=== PATIENT | male | born 1985 | race Caucasian/White ===

== ENCOUNTER 2019-04-19 12:34 | Observation (INO) | payer BC, OTHER ==
[~2019-04-19] VITALS: Ht 177.8 cm; Wt 226.7 kg
--- NOTE | 2019-04-19 12:41 | ED General ---
General Stated Complaint: CHEST PAIN History of Present Illness Date Seen by Provider: Apr 19, 2019 Time Seen by Provider: 12:37 Initial Comments Patient presents emergency department for evaluation of chest pressure and dyspnea with worsening dyspnea on exertion that started this morning. 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 He says that he was sat down and rested and the dyspnea improves as well as pressure but he still has pressure that he feels in the center of his chest that radiates to both sides of his chest. He says that he left work and he went home and took his blood pressure medications and he feels somewhat better but if he gets up and walks around he feels dyspnea and worsening chest pressure. Patient has not been compliant with his Coreg or lisinopril over the past month and a half is he says it was making him feel lightheaded and weak and his blood pressure was going too low so he stopped both of them. He says besides hypertension he has not been diagnosed with high cholesterol or diabetes. He denies smoking cigarettes but says he is around people who smoke cigarettes. His grandmother from a heart attack in her 80s. He says he has not been diagnosed with heart disease. Allergies and Home Medications Allergies Coded Allergies: Penicillins (Unverified Allergy, Severe, 04/19/19) Rash amoxicillin (Unverified Allergy, Severe, 04/19/19) Rash Patient Home Medication List Home Medication List Reviewed: Yes Review of Systems Review of Systems Constitutional: no symptoms reported EENTM: no symptoms reported Respiratory: dyspnea on exertion, short of breath Cardiovascular: chest pain Gastrointestinal: abdominal pain Genitourinary: no symptoms reported Musculoskeletal: no symptoms reported Skin: no symptoms reported Psychiatric/Neurological: No Symptoms Reported All Other Systems Reviewed Negative Unless Noted: Yes Physical Exam Vital Signs Vital Signs - First Documented 04/19/19 12:38 Temp 97.5 Pulse 92 Resp 15 B/P (MAP) 152/86 (108) Pulse Ox 95 O2 Delivery Room Air Capillary Refill : Height, Weight, BMI Height: '" Weight: lbs. oz. kg; BMI Method: General Appearance: No Apparent Distress, Obese HEENT: PERRL/EOMI Neck: Non Tender Respiratory: No Accessory Muscle Use, Wheezing Cardiovascular: Regular Rate, Rhythm Gastrointestinal: Non Tender, Soft Back: Normal Inspection Extremity: Pedal Edema, Swelling Neurologic/Psychiatric: Alert, Oriented x3 Skin: Normal Color, Warm/Dry Progress/Results/Core Measures Suspected Sepsis SIRS Temperature: Pulse: Respiratory Rate: Laboratory Tests 04/19/19 12:44: White Blood Count 8.7 Blood Pressure / Mean: Laboratory Tests 04/19/19 12:44: Creatinine 0.75, INR Comment 1.0, Platelet Count 236, Total Bilirubin 0.4 Results/Orders Lab Results Laboratory Tests Test 04/19/19 12:44 Range/Units White Blood Count 8.7 4.3-11.0 10^3/uL Red Blood Count 4.71 4.35-5.85 10^6/uL Hemoglobin 13.7 13.3-17.7 G/DL Hematocrit 44 40-54 % Mean Corpuscular Volume 93 80-99 FL Mean Corpuscular Hemoglobin 29 25-34 PG Mean Corpuscular Hemoglobin Concent 31 L 32-36 G/DL Red Cell Distribution Width 14.2 10.0-14.5 % Platelet Count 236 130-400 10^3/uL Mean Platelet Volume 10.3 7.4-10.4 FL Neutrophils (%) (Auto) 64 42-75 % Lymphocytes (%) (Auto) 19 12-44 % Monocytes (%) (Auto) 12 0-12 % Eosinophils (%) (Auto) 4 0-10 % Basophils (%) (Auto) 1 0-10 % Neutrophils # (Auto) 5.6 1.8-7.8 X 10^3 Lymphocytes # (Auto) 1.6 1.0-4.0 X 10^3 Monocytes # (Auto) 1.0 0.0-1.0 X 10^3 Eosinophils # (Auto) 0.4 H 0.0-0.3 10^3/uL Basophils # (Auto) 0.1 0.0-0.1 10^3/uL Prothrombin Time 13.8 12.2-14.7 SEC INR Comment 1.0 0.8-1.4 Activated Partial Thromboplast Time 25 24-35 SEC Sodium Level 139 135-145 MMOL/L Potassium Level 4.0 3.6-5.0 MMOL/L Chloride Level 97 L 98-107 MMOL/L Carbon Dioxide Level 30 21-32 MMOL/L Anion Gap 12 5-14 MMOL/L Blood Urea Nitrogen 13 7-18 MG/DL Creatinine 0.75 0.60-1.30 MG/DL Estimat Glomerular Filtration Rate > 60 BUN/Creatinine Ratio 17 Glucose Level 94 70-105 MG/DL Calcium Level 8.8 8.5-10.1 MG/DL Corrected Calcium 8.7 8.5-10.1 MG/DL Magnesium Level 2.0 1.8-2.4 MG/DL Total Bilirubin 0.4 0.1-1.0 MG/DL Aspartate Amino Transf (AST/SGOT) 21 5-34 U/L Alanine Aminotransferase (ALT/SGPT) 25 0-55 U/L Alkaline Phosphatase 116 40-136 U/L Troponin I < 0.30 <0.30 NG/ML Pro-B-Type Natriuretic Peptide 239.7 H <75.0 PG/ML Total Protein 7.6 6.4-8.2 GM/DL Albumin 4.1 3.2-4.5 GM/DL Lipase 56 8-78 U/L My Orders Orders - RENETTA CHARLES DO Cbc With Automated Diff (04/19/19 12:45) Comprehensive Metabolic Panel (04/19/19 12:45) Lipase (04/19/19 12:45) Magnesium (04/19/19 12:45) Partial Thromboplastin Time (04/19/19 12:45) Probnp Fs (04/19/19 12:45) Protime With Inr (04/19/19 12:45) Troponin I (04/19/19 12:45) Ua Culture If Indicated (04/19/19 12:45) Ekg Tracing (04/19/19 12:45) Drug Screen Stat (Urine) (04/19/19 12:45) Aspirin Chewable Tablet (Baby Aspirin Ch (04/19/19 12:45) Antacid Suspension (Mylanta Suspension (04/19/19 13:15) Lidocaine 2% Viscous 15 Ml (Xylocaine Vi (04/19/19 13:15) Albuterol/Ipra Inhalation Soln (Duoneb I (04/19/19 13:15) Svn Small Volume Nebulizer (04/19/19 13:10) Chest 1 View Ap/Pa Only (04/19/19 13:24) Medications Given in ED Current Medications Medications Dose Ordered Sig/Jason Route Start Time Stop Time Status Last Admin Dose Admin Al Hydrox/Mg Hydrox/Simethicone 30 ml ONCE ONCE PO 04/19/19 13:15 04/19/19 13:16 DC 04/19/19 13:18 30 ML Albuterol/ Ipratropium 3 ml ONCE ONCE INH 04/19/19 13:15 04/19/19 13:16 DC 04/19/19 13:18 3 ML Aspirin 324 mg ONCE ONCE PO 04/19/19 12:45 04/19/19 12:48 DC 04/19/19 12:53 324 MG Lidocaine HCl 5 ml ONCE ONCE PO 04/19/19 13:15 04/19/19 13:16 DC 04/19/19 13:18 5 ML Vital Signs/I&O 04/19/19 04/19/19 04/19/19 12:38 12:53 12:54 Temp 97.5 97.5 Pulse 92 Resp 15 B/P (MAP) 152/86 (108) Pulse Ox 95 O2 Delivery Room Air Room Air Capillary Refill : Progress Note : Progress Note Patient is morbidly obese and has some concerning symptoms for possible angina as his symptoms get worse when he is up moving around. His EKG shows no obvious ischemic changes. I did want to get a CT angiogram and I'm and pelvis as he was complaining of some abdominal bloating as well however the weight limit on the CT scanner is 400 pounds and he weighs approximately 500 pounds. Patient's troponin is negative however his BNP is elevated concerning for possible CHF. I told patient I am quite concerned about his exertional chest pressure and dyspnea and recommended that he gets inpatient cardiac evaluation. Patient is willing to do this. He is not willing to be transferred via ambulance. I told patient that he could have sudden cardiac especially if he is up moving around. I told him it is quite necessary to be transferred via ambulance but he is not willing to have this done. I explained why I wanted to be done and that the risks he is taking by not taking EMS transfer including and disability. Patient verbalized understanding and accepted the risks of and disability by not going via EMS. Departure Impression Primary Impression: Chest pain Qualified Codes: R07.9 - Chest pain, unspecified Additional Impression: Elevated brain natriuretic peptide (BNP) level Disposition: ADMITTED INPATIENT Condition: Stable Transfer Method of Transfer: Private Vehicle Departure-Patient Inst. Referrals: ROHAN GARNETT DO (PCP/Family) Primary Care Physician RENETTA CHARLES DO Apr 19, 2019 12:41
[2019-04-19] MEDS ORDERED: ASPIRIN 81 MG CHEW (CHILDREN'S ASA) PO ONE (12:45)
[2019-04-19 12:59] LABS: WHITE BLOOD COUNT 8.7 10^3/uL (4.3-11.0)
[2019-04-19 13:00] LABS: BASOPHILS # (AUTO) 0.1 10^3/uL (0.0-0.1); BASOPHILS % (AUTO) 1 % (0-10); EOSINOPHILS # (AUTO) 0.4 10^3/uL (0.0-0.3); EOSINOPHILS % (AUTO) 4 % (0-10); HEMATOCRIT 44 % (40-54); HEMOGLOBIN 13.7 G/DL (13.3-17.7); LYMPHOCYTES # (AUTO) 1.6 X 10^3 (1.0-4.0); LYMPHOCYTES % (AUTO) 19 % (12-44); MEAN CORPUSCULAR HEMOGLOBIN 29 PG (25-34); MEAN CORPUSCULAR HGB CONC 31 G/DL (32-36); MEAN CORPUSCULAR VOLUME 93 FL (80-99); MEAN PLATELET VOLUME 10.3 FL (7.4-10.4); MONOCYTES % (AUTO) 12 % (0-12); NEUTROPHILS # (AUTO) 5.6 X 10^3 (1.8-7.8); NEUTROPHILS % (AUTO) 64 % (42-75); PLATELET COUNT 236 10^3/uL (130-400); RED CELL DISTRIBUTION WIDTH 14.2 % (10.0-14.5)
[2019-04-19 13:07] LABS: PROTHROMBIN TIME PATIENT 13.8 SEC (12.2-14.7)
[2019-04-19] MEDS ORDERED: RT-ALBUTEROL/IPRATROPIUM 3 ML (DUONEB) VIAL INH ONE (13:15)
[2019-04-19] MEDS ORDERED: LIDOCAINE 2% VISCOUS 15 ML UDC PO ONE (13:15)
[2019-04-19] MEDS ORDERED: ANTACID SUSP 30 ML UDC (MYLANTA) PO ONE (13:15)
[2019-04-19 13:21] LABS: ALANINE AMINOTRANSFERASE 25 U/L (0-55); ALBUMIN 4.1 GM/DL (3.2-4.5); ALKALINE PHOSPHATASE 116 U/L (40-136); BILIRUBIN,TOTAL 0.4 MG/DL (0.1-1.0); BUN/CREATININE RATIO 17; CALCIUM 8.8 MG/DL (8.5-10.1); CARBON DIOXIDE 30 MMOL/L (21-32); CHLORIDE 97 MMOL/L (98-107); CREATININE SERUM 0.75 MG/DL (0.60-1.30); GFR ESTIMATED > 60; GLUCOSE 94 MG/DL (70-105); SODIUM 139 MMOL/L (135-145); TOTAL PROTEIN 7.6 GM/DL (6.4-8.2)
[2019-04-19 13:22] LABS: LIPASE 56 U/L (8-78)
--- NOTE | 2019-04-19 13:39 | Diagnostic Imaging Report ---
Indication: Chest pain and shortness of breath. Time of exam 1:10 PM No prior studies are available for comparison. Heart size is normal. Lungs appear to be hyperinflated. No infiltrates are seen. There is no effusion or pneumothorax. Impression: Hyperinflation. No acute infiltrate is detected. Dictated by: Dictated on workstation # [id number]
--- NOTE | 2019-04-19 14:00 | NUR ---
Pt IV in place for transfer by POV. Doctor notified.
[2019-04-19 14:15] LABS: BILIRUBIN,URINE NEGATIVE (NEGATIVE); CLARITY,URINE CLEAR; COLOR,URINE YELLOW; GLUCOSE, URINE (UA) NEGATIVE (NEGATIVE); KETONES,URINE NEGATIVE (NEGATIVE); LEUKOCYTE ESTERASE ,URINE NEGATIVE (NEGATIVE); NITRITE,URINE NEGATIVE (NEGATIVE); PROTEIN,URINE NEGATIVE (NEGATIVE); UROBILINOGEN,URINE 0.2 MG/DL (NORMAL)
[2019-04-19 14:22] LABS: AMPHETAMINE SCREEN, URINE NEGATIVE (NEGATIVE); BARBITURATE SCREEN URINE NEGATIVE (NEGATIVE); BENZODIAZEPINES SCREEN URINE NEGATIVE (NEGATIVE); CANNABINOID SCREEN, URINE POSITIVE (NEGATIVE); COCAINE SCREEN URINE NEGATIVE (NEGATIVE); METHADONE STAT NEGATIVE (NEGATIVE); METHAMPHETAMINE SCREEN URINE S NEGATIVE (NEGATIVE); OPIATE SCREEN URINE NEGATIVE (NEGATIVE); OXYCODONE STAT NEGATIVE (NEGATIVE); PROPOXYPHENE STAT NEGATIVE (NEGATIVE); TRICYCLIC ANTIDEPRESSANTS SCRE NEGATIVE (NEGATIVE)
[2019-04-19 15:11] VITALS: BP 168/93
[2019-04-19] MEDS ORDERED: PATIENT MAY USE OWN MEDS, ALL PO SCH (15:15)
[2019-04-19] MEDS ORDERED: ONDANSETRON 4 MG/2 ML (SDV) Z0FRAN IVP PRN (15:15)
[2019-04-19] MEDS ORDERED: morphine INJ 10 MG/ML 1ML (SYR OR VIAL) IVP PRN (15:15)
[2019-04-19] MEDS ORDERED: CATHETER FLUSH 10 ML SYR IV PRN (15:45)
[2019-04-19] MEDS ORDERED: morphine INJ 4 MG/ML 1 ML (VIAL/SYRINGE) IV PRN (15:45)
[2019-04-19] MEDS ORDERED: REGADENOSON 0.4 MG/5 ML SYR (LEXISCAN) IV ONE (15:45)
--- NOTE | 2019-04-19 15:49 | History & Physical-Hospitalist ---
History of Present Illness HPI/Chief Complaint Pt is a 34yoCF with a PMH of HTN who presented to the ER with a CC of chest pain. He states he was at work hooking up a trailer and while this normally does not affect him but he developed chest pain in the center of his chest and became dyspneic and diaphoretic. He has never had similar symptoms. He did feel like he had some abdominal distention with it but no nausea. He is a former smoker but quit roughly 10 years ago. He does still smoke marijuana occasionally. Source: patient Exam Limitations: no limitations Date Seen 04/19/19 Time Seen by a Provider: 15:51 Attending Physician Selam Alejandre MD PCP Taz Strickland DO Referring Physician Date of Admission Apr 19, 2019 at 2:58 pm Home Medications & Allergies Home Medications Reviewed patient Home Medication Reconciliation performed by pharmacy medication reconciliations ophthalmology technician and/or nursing. Patients Allergies have been reviewed. Allergies Allergies Coded Allergies Penicillins (Unverified Allergy, Severe, 04/19/19) Rash amoxicillin (Unverified Allergy, Severe, 04/19/19) Rash Past [id number] Hx Past Med/Social Hx: Reviewed Nursing Past Med/Soc Hx Patient Social History Marrital Status: Employed/Student: employed Alcohol Use: Occasionally Uses Alcohol Beverage of Choice: Beer Recreational Drug Use: Yes Drug of Choice: THC Vape Smoking Status: Former Smoker Type Used: Cigarettes 2nd Hand Smoke Exposure: Yes Recent Foreign Travel: No Contact w/other who traveled: No Recent Hopitalizations: No Recent Infectious Disease Expo: No Seasonal Allergies Seasonal Allergies: Yes Past Medical History Surgeries: Orthopedic Cardiac: Hypertension Sexually Transmitted Disease: No HIV/AIDS: No Musculoskeletal: Arthritis HEENT: Eye Injury Loss of Vision: Left Hearing Impairment: Hard of Hearing History of Blood Disorders: No Family History Reviewed Nursing Family Hx Heart Disease, Diabetes Review of Systems Constitutional: No chills; diaphoresis; No fever EENTM: no symptoms reported Respiratory: dyspnea on exertion, short of breath Cardiovascular: chest pain, edema (chronic); No Hx of Intervention, No palpitations, No syncope Gastrointestinal: abdominal pain; No constipation, No diarrhea, No nausea, No vomiting Genitourinary: no symptoms reported Musculoskeletal: back pain (chronic) Skin: no symptoms reported Psychiatric/Neurological: No Symptoms Reported Physical Exam Physical Exam Vital Signs Vital Signs - First Documented 04/19/19 12:38 Temp 97.5 Pulse 92 Resp 15 B/P (MAP) 152/86 (108) Pulse Ox 95 O2 Delivery Room Air Capillary Refill : Less Than 3 Seconds Height, Weight, BMI Height: 5'10.00" Weight: 390lbs. 5.0oz. [id number]; 56.0 BMI Method:Stated General Appearance: No Apparent Distress, Obese HEENT: Normal ENT Inspection, Moist Mucous Membranes; No Scleral Icterus (L), No Scleral Icterus (R) Neck: Normal Inspection Respiratory: Lungs Clear, No Accessory Muscle Use, No Respiratory Distress Cardiovascular: Regular Rate, Rhythm, No Murmur, Normal Peripheral Pulses Gastrointestinal: Normal Bowel Sounds, Non Tender, Soft; No Distended, No Guarding, No Rebound Extremity: Non Tender, No Calf Tenderness, Swelling Neurologic/Psychiatric: Alert, Oriented x3, Normal Mood/Affect; No Aphasia, No Facial Droop Skin: Normal Color, Warm/Dry, Tattoos/Piercings Results Results/Procedures Labs Laboratory Tests 04/19/19 12:44 Patient resulted labs reviewed. Imaging: Reviewed Imaging Report Assessment/Plan Admission Diagnosis Typical chest pain Admission Status: Observation Diagnosis/Problems Diagnosis/Problems (1) Chest pain in adult Assessment & Plan: trend troponins telemetry echo ordered Cardiology consulted, appreciate recs Plan for stress in AM if troponins remain negative (2) Essential (primary) hypertension Assessment & Plan: was previously on lisinopril but took himself off due to fatigue and hypotension Monitor BP but will likely need antihypertensives at discharge given current trend SELAM ALEJANDRE MD Apr 19, 2019 3:48 pm
--- NOTE | 2019-04-19 15:52 | NUR ---
RACHELNILS Daniel admitted to room 407-1, with an admitting diagnosis of chest pain, on 04/19/19 from ED Rafael Martin , accompanied by .NILS RAMOS introduced to surroundings, call light, bed controls, phone, TV, temperature control, lights, meal times, smoking policy, visitor policy, side rail policy, bathrooms and showers. Patient Rights given to patient in the handbook. NILS RAMOS verbalizes understanding that [facility] is not responsible for the loss or damage to any personal effects or valuables that are kept in the patients posession during their hospitalization. The following Patient Care Plans and discharge were discussed with the patient and present. NILS RAMOS verbalizes understanding of Interdisciplinary Patient Education.
[2019-04-19] MEDS ORDERED: LISI1TAB6 PO (16:33)
[2019-04-19] MEDS ORDERED: ACET-2267 PO (16:33)
[2019-04-19] MEDS ORDERED: MELO15TA39 PO (16:33)
[2019-04-19] MEDS ORDERED: MAGN400T39 PO (16:38)
[2019-04-19] MEDS ORDERED: VITA400C60 PO (16:38)
[2019-04-19] MEDS ORDERED: POTA99TA21 PO (16:38)
[2019-04-19] MEDS ORDERED: BIOT1TAB PO (16:38)
[2019-04-19] MEDS ORDERED: [UNRECOGNIZED DRUG - OTHER] PO (16:38)
[2019-04-19] MEDS ORDERED: VITA1CAP PO (16:40)
--- NOTE | 2019-04-19 16:42 | NUR ---
SPOKE WITH THE PATIENT ABOUT HIS MEDICATIONS. HIS LISTED WHAT HE IS CURRENTLY TAKING AND I VERIFIED THE PRESCRIPTIONS WITH THE EXT MED HX. HE FILLED LISINOPRIL HCTZ 10-12.5 #90 FOR A 90 DAY SUPPLY 02-16-19 AND CARVEDILOL 12.5MG #90 FOR 90 DAYS 02-10-19. HE STATES HE HAS NOT BEEN TAKING THESE RECENTLY. HE SAW DR. GARNETT AND WAS TOLD TO TRY TAKING THEM EVERY OTHER DAY, ALSO AT THAT VISIT HE WAS GIVEN AN ANTIBIOTIC FOR AN INFECTION AND WAS TOLD TO COME BACK WHEN THAT WAS FINISHED. HE FILLED CLINDAMYCIN 01-26-19 BUT STATES HE HAS NOT BEEN BACK TO THE OFFICE AND JUST STOPPED TAKING THE CARVEDILOL AND LISINOPRIL. HE MONITORS HIS BLOOD PRESSURE AT HOME AND HAD NOT BEEN HAVING ISSUES. TODAY HE DID TAKE ONE OF HIS LISINOPRIL TABLETS AFTER SYMPTOMS STARTED. I LEFT LISINOPRIL HCTZ ON THE MED REC PRN BUT DID NOT INCLUDE THE CARVEDILOL AT THIS TIME. HE TAKES THE FOLLOWING OTC: TYLENOL PRN VITAMIN E DAILY POTASSIUM DAILY B COMPLEX DAILY BIOTIN DAILY MAGNESIUM DAILY MENS WORKFORCE SUPPLEMENT FROM [employer] DAILY
--- NOTE | 2019-04-19 17:48 | Consultation-Cardiology ---
HPI-Cardiology Cardiology Consultation: Date of Consultation 04/19/19 Date of Admission Attending Physician Selam Alejandre MD Admitting Physician Taz Strickland DO Consulting Physician Gilson WARE MD HPI: Time Seen by a Provider: 17:46 Chief Complaint: Chest pain This is a 34-year-old gentleman with morbid obesity who presents with chest pain and shortness of breath. He also has diaphoresis as well as pressure on the chest like somebody is sitting on his chest. He has history of hypertension but is noncompliant. He denies smoking. He denies any family history of premature CAD. Review of Systems-Cardiology Review of Systems Constitutional: As described under HPI; No As described under HPI, No no symptoms reported, No chills, No fever, No lightheadedness Eyes: No As described under HPI, No no symptoms reported, No blindness, No blurred vision, No contact lenses, No drainage, No decreased acuity, No foreign body sensation, No pain, No vision change Ears/Nose/Throat: No As described under HPI, No no symptoms reported, No chronic hearing loss, No ear discharge, No ear pain, No nasal drainage, No ulcerations Respiratory: No no symptoms reported; As described under HPI; No As described under HPI, No cough, No orthopnea; shortness of breath; No SOB with excertion Cardiovascular: No no symptoms reported; As described under HPI; No As described under HPI; chest pain; No edema, No irregular heart rate, No lightheadedness, No palpitations Gastrointestinal: No no symptoms reported, No As described under HPI, No abdomen distended, No abdominal pain, No blood streaked bowels, No constipation, No diarrhea, No nausea, No vomiting, No stool coloration changes Genitourinary: No As described under HPI, No burning, No dysuria, No discharge, No frequency, No flank pain, No hematuria, No urgency Skin: No rash, No skin related problems, No ulcerations Psychiatric/Neurological: No anxiety, No depression, No seizure, No focal weakness, No syncope Hematologic: No bleeding abnormalities All Other Systems Reviewed Negative Unless Noted: Yes [id number] Hx Patient Social History Marrital Status: Employed/Student: employed Alcohol Use: Occasionally Uses Recreational Drug Use: Yes Drug of Choice: THC Vape Smoking Status: Former Smoker Type Used: Cigarettes 2nd Hand Smoke Exposure: Yes Recent Foreign Travel: No Recent Infectious Disease Expo: No Physical Abuse Screen: No Sexual Abuse: No Past Medical History PMH As described under Assessment. Family Medical History Family History: Alzheimer's disease Arthritis Asthma Cardiovascular disease Diabetes mellitus Hypertension Myocardial infarction Parkinson's disease Respiratory disorder Allergies and Home Medications Allergies Coded Allergies: Penicillins (Unverified Allergy, Severe, 04/19/19) Rash amoxicillin (Unverified Allergy, Severe, 04/19/19) Rash Home Medications Acetaminophen 500 Mg Tablet, 1,000 MG PO Q4H PRN for PAIN-MILD, (Reported) Biotin 1 Mg Tablet, 1 MG PO DAILY, (Reported) Lisinopril/Hydrochlorothiazide 1 Each Tablet, 1 TAB PO DAILY PRN for BLOOD PRESSURE, (Reported) Magnesium Oxide 400 Mg Tablet, 400 MG PO DAILY, (Reported) Meloxicam 15 Mg Tablet, 15 MG PO DAILY, (Reported) Potassium Gluconate 99 Mg Tablet, 99 MG PO DAILY, (Reported) Vitamin B Complex 1 Each Capsule, 1 CAP PO DAILY, (Reported) Vitamin E Acetate 400 Unit Capsule, 400 UNIT PO DAILY, (Reported) [[employer]] , 1 CAP PO DAILY, (Reported) Patient Home Medication List Home Medication List Reviewed: Yes Physical Exam-Cardiology Physical Exam Vital Signs/I&O 04/19/19 04/19/19 04/19/19 04/19/19 12:38 12:53 12:54 14:17 Temp 97.5 97.5 Pulse 92 92 Resp 15 14 B/P (MAP) 152/86 (108) 148/83 (104) Pulse Ox 95 95 O2 Delivery Room Air Room Air Room Air 04/19/19 04/19/19 04/19/19 04/19/19 15:11 15:11 16:00 16:41 Temp 99.2 99.2 Pulse 99 99 Resp 20 20 B/P (MAP) 168/93 (118) 168/93 Pulse Ox 91 91 91 O2 Delivery Room Air Room Air Room Air Room Air Capillary Refill : Less Than 3 Seconds Constitutional: AAO x 3, well-developed HEENT: No PERRL, No normal ENT inspection, No TMs normal, No pharynx normal, No scleral icterus (R), No scleral icterus (L), No pale conjunctivae (R), No pale conjunctivae (L), No photophobia, No TM abnormal (R), No TM abnormal (L), No pharyngeal erythema, No tonsillar exudate, No other, No discharge, No EOMI, No hearing is well preserved, No hard of hearing, No oral hygience is good, No ulceration, No xanthelasmas are seen Neck: No non-tender, No full range of motion, No supple, No normal inspection, No carotid bruit, No limited range of motion, No lymphadenopathy (R), No lymphadenopathy (L), No tender lateral, No tender midline, No thyromegaly, No other, No carotid pulses are 2 + bilaterally, No with good upstrokes Respiratory: No accessory muscle use, No respiratory distress, No chest tender, No chest expansion is symmetric; chest is bilaterally symmetric; No lungs clear to percussion; lungs clear to auscultation; No crackles, No rhonchi, No rales, No stridor, No wheezing, No pleural rub, No other Cardiovascular: regular rate-rhythm; No irregularly irregular, No extra beats, No parasternal heave is noted, No JVD, No edema, No bradycardia, No tachycardia, No point of maximal impulse, No cardiac thrills are palpable; S1 and S2; No gallop/S3, No gallop/S4, No diastolic murmur, No systolic murmur, No friction rub, No click, No other Gastrointestinal: No tender, No soft, No round, No distended, No pulsatile mass, No organomegaly, No guarding, No rebound, No tenderness, No hernia, No mass, No audible bowel sounds, No abnormal bowel sounds, No abdominal bruits, No spleenomegaly, No other Rectal: deferred Extremities: No normal range of motion, No non-tender, No normal inspection, No pedal edema, No calf tenderness, No normal capillary refill, No pelvis stable, No calf tenderness, No inflammation, No pedal edema, No slow capillary refill, No swelling, No other, No abrasion, No clubbing, No cyanosis, No ecchymosis, No laceration, No no lower extremity edema bilateral, No significant edema, No tenderness, No wound Neurologic/Psychiatric: no motor/sensory deficits, alert, normal mood/affect, oriented x 3, power is 5/5 both on sides Skin: No normal color, No warm/dry, No cyanosis, No cool, No diaphoresis, No damp, No ecchymosis, No jaundice, No mottled, No pallor, No rash, No tattoos/piercings, No ulcerations, No rash on exposed areas, No ulcerations on exposed areas, No other Data Review Labs Laboratory Tests 04/19/19 12:44: White Blood Count 8.7, Red Blood Count 4.71, Hemoglobin 13.7, Hematocrit 44, Mean Corpuscular Volume 93, Mean Corpuscular Hemoglobin 29, Mean Corpuscular Hemoglobin Concent 31L, Red Cell Distribution Width 14.2, Platelet Count 236, Mean Platelet Volume 10.3, Neutrophils (%) (Auto) 64, Lymphocytes (%) (Auto) 19, Monocytes (%) (Auto) 12, Eosinophils (%) (Auto) 4, Basophils (%) (Auto) 1, Neutrophils # (Auto) 5.6, Lymphocytes # (Auto) 1.6, Monocytes # (Auto) 1.0, Eosinophils # (Auto) 0.4H, Basophils # (Auto) 0.1, Prothrombin Time 13.8, INR Comment 1.0, Activated Partial Thromboplast Time 25, Sodium Level 139, Potassium Level 4.0, Chloride Level 97L, Carbon Dioxide Level 30, Anion Gap 12, Blood Urea Nitrogen 13, Creatinine 0.75, Estimat Glomerular Filtration Rate > 60, BUN/Creatinine Ratio 17, Glucose Level 94, Calcium Level 8.8, Corrected Calcium 8.7, Magnesium Level 2.0, Total Bilirubin 0.4, Aspartate Amino Transf (AST/SGOT) 21, Alanine Aminotransferase (ALT/SGPT) 25, Alkaline Phosphatase 116, Troponin I < 0.30, Pro-B-Type Natriuretic Peptide 239.7H, Total Protein 7.6, Albumin 4.1, Lipase 56 04/19/19 14:02: Urine Color YELLOW, Urine Clarity CLEAR, Urine pH 8.0, Urine Specific [place] 1.015L, Urine Protein NEGATIVE, Urine Glucose (UA) NEGATIVE, Urine Ketones NEGATIVE, Urine Nitrite NEGATIVE, Urine Bilirubin NEGATIVE, Urine Urobilinogen 0.2, Urine Leukocyte Esterase NEGATIVE, Urine RBC (Auto) NEGATIVE, Urine RBC NONE, Urine WBC NONE, Urine Squamous Epithelial Cells 5-10, Urine Crystals NONE, Urine Bacteria NONE, Urine Casts NONE, Urine Mucus NEGATIVE, Urine Culture Indicated NO, Urine Opiates Screen NEGATIVE, Urine Oxycodone Screen NEGATIVE, Urine Methadone Screen NEGATIVE, Urine Propoxyphene Screen NEGATIVE, Urine Barbiturates Screen NEGATIVE, Ur Tricyclic Antidepressants Screen NEGATIVE, Urine Phencyclidine Screen NEGATIVE, Urine Amphetamines Screen NEGATIVE, Urine Methamphetamines Screen NEGATIVE, Urine Benzodiazepines Screen NEGATIVE, Urine Cocaine Screen NEGATIVE, Urine Cannabinoids Screen POSITIVEH 04/19/19 15:41: Troponin I < 0.028 ECG Impression ECG Initial ECG Rhythm: Normal Sinus A/P-Cardiology Assessment/Admission Diagnosis Chest pain, shortness of breath, morbid obesity, Hypertension Plan Chest pain, echocardiogram, serial troponin. If serial troponin negative will schedule stress test in the morning. shortness of breath, no evidence of congestive heart failure. Echocardiogram. morbid obesity, Hypertension; continue lisinopril. Thank you for your consultation. Please call me if you have any questions. Zoe Ware MD, FACP, FACC, FSCAI, FHRS, CCDS Interventional Cardiology Cardiac Electrophysiology Vascular Medicine and Endovascular Interventions Clinical Quality Measures DVT/VTE Risk/Contraindication: Risk Factor Score Per Nursin RFS Level Per Nursing on Admit: 1=Low/No VTE PPX Gilson WARE MD Apr 19, 2019 5:48 pm
[2019-04-19 20:08] VITALS: BP 136/68
[2019-04-19] MEDS: CATHETER FLUSH 10 ML SYR IV SCH (22:00)
[2019-04-20] VITALS (8 sets, daily range): BP systolic 116–141; BP diastolic 61–88
[2019-04-20 05:17] LABS: BASOPHILS % (AUTO) 1 % (0-10); EOSINOPHILS # (AUTO) 0.4 10^3/uL (0.0-0.3); EOSINOPHILS % (AUTO) 6 % (0-10); HEMATOCRIT 43 % (40-54); HEMOGLOBIN 13.6 G/DL (13.3-17.7); LYMPHOCYTES # (AUTO) 1.6 X 10^3 (1.0-4.0); LYMPHOCYTES % (AUTO) 23 % (12-44); MEAN CORPUSCULAR HEMOGLOBIN 29 PG (25-34); MEAN CORPUSCULAR HGB CONC 32 G/DL (32-36); MEAN CORPUSCULAR VOLUME 92 FL (80-99); MEAN PLATELET VOLUME 10.5 FL (7.4-10.4); MONOCYTES # (AUTO) 0.9 X 10^3 (0.0-1.0); MONOCYTES % (AUTO) 13 % (0-12); NEUTROPHILS # (AUTO) 4.1 X 10^3 (1.8-7.8); NEUTROPHILS % (AUTO) 58 % (42-75); PLATELET COUNT 234 10^3/uL (130-400); RED CELL DISTRIBUTION WIDTH 14.8 % (10.0-14.5)
[2019-04-20 05:41] LABS: ALANINE AMINOTRANSFERASE 25 U/L (0-55); ALBUMIN 3.9 GM/DL (3.2-4.5); ALKALINE PHOSPHATASE 109 U/L (40-136); BILIRUBIN,TOTAL 0.6 MG/DL (0.1-1.0); BUN/CREATININE RATIO 14; CALCIUM 9.3 MG/DL (8.5-10.1); CARBON DIOXIDE 28 MMOL/L (21-32); CHLORIDE 102 MMOL/L (98-107); CHOLESTEROL 152 MG/DL (< 200); CREATININE SERUM 0.81 MG/DL (0.60-1.30); GFR ESTIMATED > 60; GLUCOSE 95 MG/DL (70-105); HDL CHOLESTEROL 52 MG/DL (40-60); SODIUM 139 MMOL/L (135-145); TOTAL PROTEIN 6.9 GM/DL (6.4-8.2); TRIGLYCERIDES 47 MG/DL (<150); VLDL CHOLESTEROL 9 MG/DL (5-40)
[2019-04-20] MEDS: CATHETER FLUSH 10 ML SYR IV SCH ×2 (06:00→14:11)
--- NOTE | 2019-04-20 06:18 | Pulmonary Consultation ---
History of Present Illness History of Present Illness Date of Consultation 04/20/19 06:12 Time Seen by Provider: 06:13 Date of Admission History of Present Illness 34yo with morbid obesity presented to to ED secondary to worsening CP, and dyspnea while hooking up a trailer. during episode pt also became diaphoretic. No prior episodes like this. He quit smoking tobacco 10yrs ago however currently smokes Marijuana. I am consulted for pulmonary management. Allergies and Home Medications Allergies Coded Allergies: Penicillins (Unverified Allergy, Severe, 04/19/19) Rash amoxicillin (Unverified Allergy, Severe, 04/19/19) Rash Home Medications Acetaminophen 500 Mg Tablet, 1,000 MG PO Q4H PRN for PAIN-MILD, (Reported) Biotin 1 Mg Tablet, 1 MG PO DAILY, (Reported) Lisinopril/Hydrochlorothiazide 1 Each Tablet, 1 TAB PO DAILY PRN for BLOOD PRESSURE, (Reported) Magnesium Oxide 400 Mg Tablet, 400 MG PO DAILY, (Reported) Meloxicam 15 Mg Tablet, 15 MG PO DAILY, (Reported) Potassium Gluconate 99 Mg Tablet, 99 MG PO DAILY, (Reported) Vitamin B Complex 1 Each Capsule, 1 CAP PO DAILY, (Reported) Vitamin E Acetate 400 Unit Capsule, 400 UNIT PO DAILY, (Reported) [Workforce For Men] , 1 CAP PO DAILY, (Reported) Past Alzgfnt-Wxtvvq-Eulphe Hx Past Med/Social Hx: Reviewed Nursing Past Med/Soc Hx Patient Social History Alcohol Use: Occasionally Uses Number of Drinks Today: AA Alcohol Beverage of Choice: Beer Recreational Drug Use: Yes Drug of Choice: THC Vape Smoking Status: Former Smoker Type Used: Cigarettes 2nd Hand Smoke Exposure: Yes Recent Foreign Travel: No Contact w/Someone Who Travel: No Recent Infectious Disease Expo: No Recent Hopitalizations: No Physical Abuse: No Sexual Abuse: No Mistreated: No Fear: No Seasonal Allergies Seasonal Allergies: Yes Past Medical History Surgeries: Yes (Titanium plate in Right shoulder and left leg) Orthopedic Respiratory: Yes Asthma Cardiac: Yes Hypertension Neurological: No Sexually Transmitted Disease: No HIV/AIDS: No Genitourinary: No Gastrointestinal: No Musculoskeletal: Yes Arthritis Endocrine: No HEENT: Yes ("star across left eye" due to paint ball accident.) Eye Injury Loss of Vision: Left Hearing Impairment: Hard of Hearing Cancer: No Blood Disorders: No Family Medical History Reviewed Nursing Family Hx Alzheimer's disease Arthritis Asthma Cardiovascular disease Diabetes mellitus Hypertension Myocardial infarction Parkinson's disease Respiratory disorder Heart Disease, Diabetes Review of Systems Time Seen by Provider: 07:43 Constitutional: Sweats, Weakness, Malaise; No: Fever, Chills, Other Eyes: No: Pain, Vision change, Conjunctivae inflammation, Eyelid inflammation, Other, Redness ENT: Nose congestion; No: Ear pain, Ear discharge, Nose pain, Nose discharge, Mouth pain, Mouth swelling, Throat pain, Throat swelling, Other Respiratory: Shortness of breath, SOB with excertion, Wheezing; No: Hemoptysis Cardiovascular: Chest Pain, Palpitations, Paroxysmal Noc. Dyspnea, Lt Headedness; No: Orthopnea, Edema, Other Gastrointestinal: No: Nausea, Vomiting, Abdominal Pain, Diarrhea, Constipation, Melena, Hematochezia, Other Genitourinary: No Dysuria, No Frequency, No Incontinence, No Hematuria, No Retention, No Other Neurological: Weakness Sepsis Event Evaluation Height, Weight, BMI Height: 5'10.00" Weight: 499lbs. 13.4oz. 226.178330vl; 56.0 BMI Method:Stated Exam Exam Vital Signs Date Time Temp Pulse Resp B/P (MAP) Pulse Ox O2 Delivery O2 Flow Rate FiO2 04/20/19 04:26 97.1 93 20 131/61 (84) 96 Room Air 04/20/19 04:00 Room Air 04/20/19 01:00 91 04/20/19 00:01 96.9 85 22 131/61 (84) 91 Room Air 04/20/19 00:00 Room Air 04/19/19 20:08 98.6 110 20 136/68 (90) 94 Room Air 04/19/19 20:00 Room Air 04/19/19 20:00 Room Air 04/19/19 19:00 91 04/19/19 17:45 87 04/19/19 16:41 Room Air 04/19/19 16:00 91 Room Air 04/19/19 15:11 99.2 99 20 168/93 91 Room Air 04/19/19 15:11 99.2 99 20 168/93 (118) 91 Room Air 04/19/19 14:17 92 14 148/83 (104) 95 Room Air 04/19/19 12:54 Room Air 04/19/19 12:53 97.5 04/19/19 12:38 97.5 92 15 152/86 (108) 95 Room Air I & O 04/20/19 07:00 Intake Total 1800 ml Balance 1800 ml Height & Weight Height: 5'10.00" Weight: 499lbs. 13.4oz. 226.363046ws; 56.0 BMI Method:Stated General Appearance: No Apparent Distress, Obese HEENT: Normal ENT Inspection, Moist Mucous Membranes; No Scleral Icterus (L), No Scleral Icterus (R) Neck: Normal Inspection Respiratory: Lungs Clear, No Accessory Muscle Use, No Respiratory Distress Cardiovascular: Regular Rate, Rhythm, No Murmur, Normal Peripheral Pulses Capillary Refill: Less Than 3 Seconds Gastrointestinal: normal bowel sounds, non tender, soft Extremity: Non Tender, No Calf Tenderness, Swelling Neurologic/Psychiatric: Alert, Oriented x3, Normal Mood/Affect; No Aphasia, No Facial Droop Skin: Normal Color, Warm/Dry, Tattoos/Piercings Results Lab Laboratory Tests 04/19/19 12:44 04/20/19 04:45 Assessment/Plan Assessment/Plan Morbid obesity with OHS -Check ABG -Diet and exercise -Education Worsening SOB -Monitor -Currently on RA -Will do out pt PFT CP - Cardiology following -Possible stress test today Tobacco and marijuana use -Education HTN HUNTER PINZON DO Apr 20, 2019 06:17
--- NOTE | 2019-04-20 07:31 | NUR ---
Patient to cardiac stress test with staff per wheelchair.
[2019-04-20] MEDS ORDERED: REGADENOSON 0.4 MG/5 ML SYR (LEXISCAN) IV ONE (08:20)
[2019-04-20] MEDS ORDERED: ASPIRIN E.C. 81 MG (ECOTRIN) TAB PO SCH (09:00)
--- NOTE | 2019-04-20 11:05 | Discharge Summary ---
Diagnosis/Chief Complaint Date of Admission Apr 19, 2019 at 14:58 Date of Discharge Admission Diagnosis Typical chest pain Discharge Diagnosis (1) Chest pain in adult Assessment & Plan: trend troponins telemetry echo ordered Cardiology consulted, appreciate recs Plan for stress in AM if troponins remain negative (2) Essential (primary) hypertension Assessment & Plan: was previously on lisinopril but took himself off due to fatigue and hypotension Monitor BP but will likely need antihypertensives at discharge given current trend Discharge Summary Procedures/Consulations Dr Ware- Cardiology Dr Khanna- Pulm Discharge Physical Exam Allergies: Coded Allergies: Penicillins (Unverified Allergy, Intermediate, rash, 04/20/19) amoxicillin (Unverified Allergy, Intermediate, Rash, 04/20/19) Vitals & I&Os Vital Signs Date Time Temp Pulse Resp B/P (MAP) Pulse Ox O2 Delivery O2 Flow Rate FiO2 04/20/19 16:43 04/20/19 16:00 97.2 04/20/19 16:00 90 17 Room Air 04/20/19 13:30 97 General Appearance: No Apparent Distress, Obese Respiratory: Lungs Clear, No Respiratory Distress Cardiovascular: Regular Rate, Rhythm, No Murmur Neurologic/Psychiatric: Alert, Oriented x3 Hospital Course Patient is a 34-year-old male past medical history of hypertension who is admitted to the hospital for ACS rule out. He had symptoms concerning for angina and underwent serial troponins which were negative so he had a nuclear stress test nuclear stress test which was read as high risk. He underwent cardiac catheterization. Cardiac catheterization was clean. His symptoms are likely related to his obesity. Due to this Dr. Khanna of pulmonology was consulted to assist with either outpatient sleep study or arranging home vent to mask. Labs (last 24 hrs) Laboratory Tests 04/20/19 14:14: Blood Gas Puncture Site LT RAD, Blood Gas Patient Temperature 96.7, Arterial Blood pH 7.41, Arterial Blood Partial Pressure CO2 43, Arterial Blood Partial Pressure O2 62L, Arterial Blood HCO3 28H, Arterial Blood Total CO2 29.1, Arterial Blood Oxygen Saturation 93L, Arterial Blood Base Excess 3.2H, Theron Test YES-POS, Blood Gas Ventilator Setting NO, Blood Gas Inspired Oxygen ROOM AIR Patient resulted labs reviewed. Pending Labs Imaging: Reviewed Imaging Report Discussion & Recommendations Discharge Planning: >30 minutes discharge planning Discharge Home Medications: Active Scripts Active Reported Vitamin B Complex 1 Each Capsule 1 Cap PO DAILY [Workforce For Men] 1 Cap PO DAILY Magnesium (Magnesium Oxide) 400 Mg Tablet 400 Mg PO DAILY Biotin 1 Mg Tablet 1 Mg PO DAILY Potassium (Potassium Gluconate) 99 Mg Tablet 99 Mg PO DAILY Vitamin E (Vitamin E Acetate) 400 Unit Capsule 400 Unit PO DAILY Tylenol Extra Strength (Acetaminophen) 500 Mg Tablet 1,000 Mg PO Q4H PRN Meloxicam 15 Mg Tablet 15 Mg PO DAILY Instructions to patient/family Please see electronic discharge instructions given to patient. Clinical Quality Measures DVT/VTE Risk/Contraindication: Risk Factor Score Per Nursin RFS Level Per Nursing on Admit: 1=Low/No VTE PPX Copy Copies To 1: ROHAN GARNETT KATELYN M MD Apr 20, 2019 11:05
--- NOTE | 2019-04-20 11:10 | Discharge Inst-Simple/Standard ---
Discharge Inst-Standard Discharge Medications New, Converted or Re-Newed RX: Transmitted to Pharmacy Patient Instructions/Follow Up Plan of Care/Instructions/FU: Please continue to take your medications as written. Please follow up with your PCP in one week. Activity as Tolerated: Yes Discharge Diet: Cardiac Diet Return to The Hospital For: Chest pain, shortness of breath, palpitations, if you feel you are getting worse. JANA GRIMES MD Apr 20, 2019 11:10
[2019-04-20] MEDS ORDERED: VERAPAMIL 5 MG/2 ML (CALAN) VIAL IV ONE (12:28)
[2019-04-20] MEDS ORDERED: NITRO DRIP 25000 MCG/D5W 250 ML IV ONE (12:28)
[2019-04-20] MEDS ORDERED: HEParin 1000 UNIT/ML (10ML VIAL) FOR BOLUS ONE (12:28)
[2019-04-20] MEDS ORDERED: LIDOCAINE 1% INJ 20 ML 20 ML VIAL ONE (12:28)
[2019-04-20] MEDS ORDERED: HEParin (CATH LAB) 2,000 ML IV ONE (12:28)
[2019-04-20] MEDS ORDERED: MIDAZOLAM 5 MG/5 ML (VERSED) VIAL ONE (12:29)
[2019-04-20] MEDS ORDERED: fentaNYL INJECTION 100 MCG/2 ML AMP ONE (12:29)
[2019-04-20] MEDS ORDERED: NS IV 1000 ML 1,000 ML ONE (12:44)
--- NOTE | 2019-04-20 12:45 | NUR ---
Patient to geoscience laboratory technician with staff per hosptial bed accompanied by .
[2019-04-20] MEDS ORDERED: NS IV 1000 ML 1,000 ML IV SCH ×2 (13:19→13:30)
--- NOTE | 2019-04-20 13:19 | Cardiac Procedure Note-CS/ASA ---
Pre-Procedure Note Pre-Op Procedure Note H&P Reviewed The H&P was reviewed, patient examined and no changes noted. Date H&P Reviewed: Apr 20, 2019 Time H&P Reviewed: 12:00 Conscious Sedation Pre-Proced Time 12:00 ASA Score 3 For ASA 3 and 4: Consider anesthesia and medical clearance. Also, for patients with a history of failed moderate sedation consider anesthesia. Airway Lungs Heart ASA score ASA 1: a normal healthy patient ASA 2: a patient with a mild systemic disease (mid diabetes, controlled hypertension, obesity ASA 3: a patient with a severe systemic disease that limits activity (angina, COPD, prior Myocardial infarction) ASA 4: a patient with an incapacitating disease that is a constant threat to life (CHF, renal failure) ASA 5: a moribund patient not expected to survive 24 hrs. (ruptured aneurysm) ASA 6: a declared brain- patient whose organs are being harvested. For emergent operations, add the letter E after the classification Mallampati Classification Grade 1 Sedation Plan Analgesia, Amnesia, Plan communicated to team members, Discussed options with patient/fam, Discussed risks with patient/fam The patient is an appropriate candidate to undergo the planned procedure, sedation, and anesthesia. The patient immediately re-assessed prior to indication. Gilson MORGAN MD Apr 20, 2019 13:19
--- NOTE | 2019-04-20 13:19 | Coronary Angiography Report ---
Coronary Angiography Report DATE OF PROCEDURE: 04/20/19 INDICATION: unstable angina. PREOPERATIVE DIAGNOSIS: unstable angina. POSTOPERATIVE DIAGNOSIS: patent epicardial coronary arteries. HISTORY: this is a 34-year-old gentleman with morbid obesity who presented with a prolonged episode of chest pain. Working diagnosis was unstable angina.There fore, the patient was scheduled for coronary angiography. PROCEDURES PERFORMED: 1.Coronary angiography. 2.Left heart catheterization. 3. Aortic arch angiogram, medical necessity: To rule out aortic dissection or thoracic aortic aneurysm in a patient with prolonged episode of chest pain and patent coronaries. COMPLICATIONS: None. SPECIMENS: None. ESTIMATED BLOOD LOSS: 10 mL ANESTHESIA: Conscious sedation ANTICOAGULATION: IV heparin CONTRAST: 88 mL. FLUOROSCOPY: 3.3 minutes. FLOUROSCOPY DOSE: 763 mgy. PROCEDURE DETAILS: The patient is a 34 male and was brought to the entry level lab technician after informed consent was taken. All the risks and complications were explained in detail; this included the risk of bleeding, vascular damage, stroke, UT and even . The patient was draped and prepped in the usual sterile fashion. Access was gained in the right radial artery with a 6 Cypriot sheath. Coronary angiography and left heart catheterization was performed with the [place] catheter. FINDINGS: 1.Left main: patent. 2.LAD: patent. 3.Left circumflex artery: patent. 4.RCA: patent. 5.Left heart catheterization: LV pressure 113/12 mmHg, aortic pressure 124/92 mmHg LVEDP 30 mmHg, normal LVEF with no wall motion abnormalities. No gradient across the aortic valve. 6. Aortic arch angiogram: No evidence of dissection or aneurysm. Patent proximal segments of the great arteries. CONCLUSIONS: patent epicardial coronary arteries. Elevated LVEDP suggest diastolic dysfunction. Continue primary prevention measures. Zoe Ware MD, FACP, FACC, [facility] Interventional Cardiology Gilson WARE MD Apr 20, 2019 13:19
[2019-04-20] MEDS ORDERED: PATIENT MAY USE OWN MEDS, ALL PO SCH (13:30)
[2019-04-20 14:20] LABS: ABG BASE EXCESS 3.2 MMOL/L (-2.5-2.5); ABG OXYGEN SATURATION 93 % (94-100); ABG PCO2 43 MMHG (35-45); ABG PH 7.41 (7.37-7.43); ABG PO2 62 MMHG (79-93); ABG TCO2 29.1 MMOL/L (21.0-31.0)
[2019-04-20 14:23] LABS: ALLENS TEST YES-POS; INSPIRED O2 ROOM AIR; PATIENT TEMP 96.7; VENTILATOR NO
--- NOTE | 2019-04-20 16:39 | Cardiology Progress Note ---
Cardiology SOAP Progress Note Subjective: No further chest pain. Objective: I&O/Vital Signs 04/20/19 04/20/19 04/20/19 04/20/19 07:00 07:18 08:19 08:34 Temp 97.9 Pulse 87 87 86 104 Resp 22 B/P (MAP) 141/74 (96) 124/88 (100) 133/73 (93) Pulse Ox 93 94 97 O2 Delivery Room Air 04/20/19 04/20/19 04/20/19 04/20/19 09:45 12:02 13:30 13:31 Temp 98.5 Pulse 86 88 87 Resp 20 17 B/P (MAP) 140/83 (102) 135/85 (102) Pulse Ox 97 97 O2 Delivery Room Air Room Air Room Air 04/20/19 04/20/19 16:00 16:00 Temp 97.2 Pulse 90 Resp 17 B/P (MAP) 116/68 (84) O2 Delivery Room Air 04/20/19 00:00 Intake Total 1800 ml Balance 1800 ml Weight (Pounds): 499 Weight (Ounces): 13.4 Weight (Calculated Kilograms): 226.125011 Constitutional: AAO x 3, well-developed Respiratory: No accessory muscle use, No respiratory distress, No chest tender, No chest expansion is symmetric; chest is bilaterally symmetric; No lungs clear to percussion; lungs clear to auscultation; No crackles, No rhonchi, No rales, No stridor, No wheezing, No pleural rub, No other Cardiovascular: regular rate-rhythm; No irregularly irregular, No extra beats, No parasternal heave is noted, No JVD, No edema, No bradycardia, No tachycardia, No point of maximal impulse, No cardiac thrills are palpable; S1 and S2; No gallop/S3, No gallop/S4, No diastolic murmur, No systolic murmur, No friction rub, No click, No other Gastrointestional: No tender, No soft, No round, No distended, No pulsatile mass, No organomegaly, No guarding, No rebound, No tenderness, No hernia, No mass, No audible bowel sounds, No abnormal bowel sounds, No abdominal bruits, No spleenomegaly, No other Extremities: No normal range of motion, No non-tender, No normal inspection, No pedal edema, No calf tenderness, No normal capillary refill, No pelvis stable, No calf tenderness, No inflammation, No pedal edema, No slow capillary refill, No swelling, No other, No abrasion, No clubbing, No cyanosis, No ecchymosis, No laceration, No no lower extremity edema bilateral, No significant edema, No tenderness, No wound Neurologic/Psychiatric: no motor/sensory deficits, alert, normal mood/affect, oriented x 3, power is 5/5 both on sides Skin: No normal color, No warm/dry, No cyanosis, No cool, No diaphoresis, No damp, No ecchymosis, No jaundice, No mottled, No pallor, No rash, No tattoos/piercings, No ulcerations, No rash on exposed areas, No ulcerations on exposed areas, No other Results/Procedures: Labs Laboratory Tests 04/19/19 21:10: Troponin I < 0.028 04/20/19 04:45: White Blood Count 7.0, Red Blood Count 4.69, Hemoglobin 13.6, Hematocrit 43, Mean Corpuscular Volume 92, Mean Corpuscular Hemoglobin 29, Mean Corpuscular Hemoglobin Concent 32, Red Cell Distribution Width 14.8H, Platelet Count 234, Mean Platelet Volume 10.5H, Neutrophils (%) (Auto) 58, Lymphocytes (%) (Auto) 23, Monocytes (%) (Auto) 13H, Eosinophils (%) (Auto) 6, Basophils (%) (Auto) 1, Neutrophils # (Auto) 4.1, Lymphocytes # (Auto) 1.6, Monocytes # (Auto) 0.9, Eosinophils # (Auto) 0.4H, Basophils # (Auto) 0.0, Sodium Level 139, Potassium Level 4.0, Chloride Level 102, Carbon Dioxide Level 28, Anion Gap 9, Blood Urea Nitrogen 11, Creatinine 0.81, Estimat Glomerular Filtration Rate > 60, BUN/Creatinine Ratio 14, Glucose Level 95, Calcium Level 9.3, Corrected Calcium 9.4, Total Bilirubin 0.6, Aspartate Amino Transf (AST/SGOT) 26, Alanine Aminotransferase (ALT/SGPT) 25, Alkaline Phosphatase 109, Total Protein 6.9, Albumin 3.9, Triglycerides Level 47, Cholesterol Level 152, LDL Cholesterol Direct 97, VLDL Cholesterol 9, HDL Cholesterol 52 04/20/19 14:14: Blood Gas Puncture Site LT RAD, Blood Gas Patient Temperature 96.7, Arterial Blood pH 7.41, Arterial Blood Partial Pressure CO2 43, Arterial Blood Partial Pressure O2 62L, Arterial Blood HCO3 28H, Arterial Blood Total CO2 29.1, Arterial Blood Oxygen Saturation 93L, Arterial Blood Base Excess 3.2H, Theron Test YES-POS, Blood Gas Ventilator Setting NO, Blood Gas Inspired Oxygen ROOM AIR A/P: Assessment/Dx: Chest pain, shortness of breath, morbid obesity, Hypertension Plan: Chest pain, echocardiogram, serial troponin. Serial troponin negative. Nuclear stress test will be done. If nuclear stress test is abnormal, we will perform coronary angiography. shortness of breath, no evidence of congestive heart failure. Echocardiogram. morbid obesity, Hypertension; continue lisinopril. Thank you for your consultation. Please call me if you have any questions. Zoe Ware MD, FACP, FACC, FSCAI, FHRS, CCDS Interventional Cardiology Cardiac Electrophysiology Vascular Medicine and Endovascular Interventions Gilson WARE MD Apr 20, 2019 16:39
== END 2019-04-20 16:43 | disposition home or self-care (01) ==
LOC: ER FS 12:35 → 4TH 14:58 → ICU 04-20 13:28
PROVIDERS: ADMIT Family Medicine; ATTEND Family Medicine
DX: R07.9 Chest pain, unspecified (principal); E66.2 Morbid (severe) obesity with alveolar hypoventilation; R00.2 Palpitations; I10 Essential (primary) hypertension; J45.909 Unspecified asthma, uncomplicated; R79.89 Other specified abnormal findings of blood chemistry; R61 Generalized hyperhidrosis; M19.90 Unspecified osteoarthritis, unspecified site; Z88.0 Allergy status to penicillin; Z88.1 Allergy status to other antibiotic agents; Z79.899 Other long term (current) drug therapy; Z79.82 Long term (current) use of aspirin; Z87.891 Personal history of nicotine dependence; Z83.3 Family history of diabetes mellitus; Z82.49 Family history of ischemic heart disease and other diseases of the circulatory system; Z82.0 Family history of epilepsy and other diseases of the nervous system; Z82.5 Family history of asthma and other chronic lower respiratory diseases; Z68.45 Body mass index [BMI] 70 or greater, adult; Z91.14 Patient's other noncompliance with medication regimen
CPT/HCPCS: 36221; 36415; 71045; 78452; 80053; 80061; 80306; 81000; 82805; 83690; 83735; 83880; 84484; 85025; 85610; 85730; 93005; 93017; 93306; 93458; G0378

== ENCOUNTER → 2019-12-22 | Outpatient (CLI) | payer OTHER ==
[~2019-12-22] MED LIST: ACET-2267 PO; BIOT1TAB PO; LISI1TAB29 PO; MAGN400T39 PO; MELO15TA39 PO; POTA99TA21 PO; VITA1CAP PO; VITA400C60 PO; [UNRECOGNIZED DRUG - OTHER] PO
--- NOTE | 2019-12-22 14:58 | Diagnostic Imaging Report ---
EXAM: SHOULDER 2 VIEW RIGHT. INDICATION: Right shoulder pain. COMPARISON: None. FINDINGS: There is an intramedullary tere and fixation screws in the proximal right humerus. The hardware components appear intact. No fracture is identified. Normal alignment. IMPRESSION: Intramedullary tere and fixation screws in the right proximal humerus. No acute findings. Dictated by: Dictated on workstation # [id number]
== END ==
LOC: LAB 14:30
DX: M25.511 Pain in right shoulder (principal)
CPT/HCPCS: 73030

== ENCOUNTER 2020-11-02 12:09 | Emergency (ER) | payer SELFPAY ==
[~2020-11-02] VITALS: Ht 177 cm; Wt 249.0 kg
--- NOTE | 2020-11-02 12:23 | ED General ---
General Stated Complaint: ELEV BP History of Present Illness Date Seen by Provider: Nov 02, 2020 Time Seen by Provider: 12:18 Initial Comments 35 yo male sent in by urgent care because of elevated BP. pt had no physical complaints. pt was nervous/anxious because he has been out of work for almost 1 yr. pt is morbid obese with wt over 500lbs. pt does not have insurance and would like a minimal workup as needed. pt reports his hr is normally slighty elevated and probable more so because he is aggitated. Allergies and Home Medications Allergies Coded Allergies: Penicillins (Unverified Allergy, Intermediate, rash, 04/20/19) amoxicillin (Unverified Allergy, Intermediate, Rash, 04/20/19) Home Medications Acetaminophen 500 Mg Tablet, 1,000 MG PO Q4H PRN for PAIN-MILD, (Reported) Biotin 1 Mg Tablet, 1 MG PO DAILY, (Reported) Magnesium Oxide 400 Mg Tablet, 400 MG PO DAILY, (Reported) Meloxicam 15 Mg Tablet, 15 MG PO DAILY, (Reported) Potassium Gluconate 99 Mg Tablet, 99 MG PO DAILY, (Reported) Vitamin B Complex 1 Each Capsule, 1 CAP PO DAILY, (Reported) Vitamin E Acetate 400 Unit Capsule, 400 UNIT PO DAILY, (Reported) [Workforce For Men] , 1 CAP PO DAILY, (Reported) Patient Home Medication List Home Medication List Reviewed: Yes Review of Systems Review of Systems Constitutional: No chills, No fever EENTM: no symptoms reported Respiratory: no symptoms reported Cardiovascular: no symptoms reported Gastrointestinal: no symptoms reported Genitourinary: no symptoms reported Musculoskeletal: no symptoms reported Skin: no symptoms reported Psychiatric/Neurological: No Symptoms Reported Hematologic/Lymphatic: No Symptoms Reported Past Nyfotat-Iprpyn-Ekuwwl Hx Patient Social History Alcohol Beverage of Choice: Beer Drug of Choice: THC Vape Type Used: Cigarettes 2nd Hand Smoke Exposure: Yes Recent Hopitalizations: No Seasonal Allergies Seasonal Allergies: Yes Past Medical History Surgeries: Yes (Titanium plate in Right shoulder and left leg) Orthopedic Respiratory: Yes Asthma Cardiac: Yes Hypertension Neurological: No Sexually Transmitted Disease: No HIV/AIDS: No Genitourinary: No Gastrointestinal: No Musculoskeletal: Yes Arthritis Endocrine: No HEENT: Yes ("star across left eye" due to paint ball accident.) Eye Injury Loss of Vision: Left Hearing Impairment: Hard of Hearing Cancer: No Blood Disorders: No Family Medical History Alzheimer's disease Arthritis Asthma Cardiovascular disease Diabetes mellitus Hypertension Myocardial infarction Parkinson's disease Respiratory disorder Heart Disease, Diabetes Physical Exam Vital Signs Vital Signs - First Documented 11/02/20 12:28 Temp 36.7 Pulse 114 Resp 18 B/P (MAP) 169/107 (127) Pulse Ox 94 O2 Delivery Room Air Capillary Refill : Height, Weight, BMI Height: 5'10.00" Weight: 499lbs. 13.4oz. 226.966430pw; 56.0 BMI Method:Stated General Appearance: No Apparent Distress, WD/WN, Obese HEENT: PERRL/EOMI Cardiovascular: Tachycardia Gastrointestinal: Non Tender, Soft Extremity: Normal Capillary Refill, Normal Range of Motion Neurologic/Psychiatric: Alert, Oriented x3, No Motor/Sensory Deficits, Normal Mood/Affect, classroom technology technician II-XII Norm as Tested Skin: Normal Color, Warm/Dry Progress/Results/Core Measures Suspected Sepsis SIRS Temperature: Pulse: Respiratory Rate: Blood Pressure / Mean: Results/Orders Vital Signs/I&O 11/02/20 12:28 Temp 36.7 Pulse 114 Resp 18 B/P (MAP) 169/107 (127) Pulse Ox 94 O2 Delivery Room Air Capillary Refill : Progress Note : Progress Note Patient with elevated blood pressure. I think there is multiple factors, he is slightly upset and irritated at having to come to the ER. This along with being nervous when he had his preemployment physical and his weight being greater than 505 pounds is likely the cause. He reports that not long ago he was seen for cardiac issues had a cath and it was negative. He was on blood pressure medication but taken off of it because his blood pressure was low. Patient with asymptomatic elevated blood pressure reading. We will have him follow-up outpatient for recheck prior to starting anything to ensure that it is not a result of stress. Pt was made an appt for tomorrow for recheck of BP and finish pre employment physical . Departure Impression Primary Impression: Elevated blood pressure reading Additional Impression: Obesity Qualified Codes: E66.01 - Morbid (severe) obesity due to excess calories Disposition: HOME, SELF-CARE Condition: Stable Departure-Patient Inst. Referrals: [facility] (PCP) Primary Care Physician JUANI HERNANDEZ APRN (Family) Primary Care Physician Patient Instructions: Lowering Your Risk of High Blood Pressure, Health Risks of a High BMI, High Blood Pressure (DC), Making Healthy Choices When You Eat Out Add. Discharge Instructions: Keep appt with Juani Hernandez for tomorrow DONN PÉREZ DO Nov 02, 2020 12:23
[2020-11-02 12:28] VITALS: BP 169/107
== END 2020-11-02 12:40 | disposition home or self-care (01) ==
LOC: EDUNIT# 12:09 → ER FS 12:14
DX: I10 Essential (primary) hypertension (principal); E66.9 Obesity, unspecified; Z68.43 Body mass index [BMI] 50.0-59.9, adult; Z88.0 Allergy status to penicillin; Z88.1 Allergy status to other antibiotic agents; Z82.61 Family history of arthritis; Z82.49 Family history of ischemic heart disease and other diseases of the circulatory system; Z83.3 Family history of diabetes mellitus; Z77.22 Contact with and (suspected) exposure to environmental tobacco smoke (acute) (chronic)
CPT/HCPCS: 99281

== ENCOUNTER → 2022-08-07 | Outpatient (CLI) | payer BC ==
[~2022-08-07] MED LIST changes: -LISI1TAB29 PO; +LISI1TAB44 PO; -POTA99TA21 PO; +POTA99TA26 PO
--- NOTE | 2022-08-07 16:29 | Diagnostic Imaging Report ---
INDICATION: Left leg pain. FINDINGS: Four views. There is a reconstruction plate and bone screws in the proximal tibia. No hardware complications. There are no acute fractures noted. The ankle and knee show good alignment. Articulating surfaces are smooth. IMPRESSION: No acute abnormalities noted. No hardware complications noted. Dictated by: Dictated on workstation # [id number]
== END ==
LOC: RAD FS 12:19
PROVIDERS: ATTEND Nurse Practitioner Family
DX: M79.605 Pain in left leg (principal)
CPT/HCPCS: 73590